=== PATIENT | male | born 1950 | race Caucasian/White ===

== ENCOUNTER 2018-03-23 12:33 | Day surgery (SDC) | payer OTHER ==
[~2018-03-23] VITALS: Ht 162.6 cm; Wt 67.0 kg
[~2018-03-23 12:33] MED LIST: ASPI-1182 PO; ATOR20TA86 PO; CARV12 PO; DOCU-272 PO; FERR-89 PO; HYDR-4061 PO; IBUP-2071 PO; LACT30L PO; LISI-661 PO; PANT40TA25 PO; PROP20TA18 PO; PYRI100T2 PO; SACU1TAB PO; SODIUM CHLORIDE 0.9% 1,000 ML IV ONE; TAMS0.4C32 PO
[2018-03-23] MEDS ORDERED: LIDOCAINE/PF 2% 5 ML VIAL IM ONE (12:34)
[2018-03-23] MEDS ORDERED: PROPOFOL 1% 20 ML VIAL IVP ONE (12:34)
[2018-03-23] MEDS ORDERED: MIDAZOLAM HCL 2 MG/2 ML VIAL IVP ONE (12:34)
[2018-03-23] MEDS ORDERED: SODIUM CHLORIDE 0.9% 1,000 ML IV ONE (12:55)
== END 2018-03-23 16:25 | disposition home or self-care (01) ==
LOC: SURGERY 12:33
PROVIDERS: ATTEND Internal Medicine Gastroenterology
DX: K29.50 Unspecified chronic gastritis without bleeding (principal); I85.00 Esophageal varices without bleeding; K76.6 Portal hypertension; K31.89 Other diseases of stomach and duodenum; K74.60 Unspecified cirrhosis of liver; D64.9 Anemia, unspecified; H91.90 Unspecified hearing loss, unspecified ear; D68.9 Coagulation defect, unspecified; I25.2 Old myocardial infarction; I45.2 Bifascicular block; M81.0 Age-related osteoporosis without current pathological fracture; I25.10 Atherosclerotic heart disease of native coronary artery without angina pectoris; I45.19 Other right bundle-branch block; I11.0 Hypertensive heart disease with heart failure; I50.9 Heart failure, unspecified; E78.00 Pure hypercholesterolemia, unspecified; F17.210 Nicotine dependence, cigarettes, uncomplicated; F10.10 Alcohol abuse, uncomplicated; Z86.74 Personal history of sudden cardiac arrest; Z86.19 Personal history of other infectious and parasitic diseases; Z87.442 Personal history of urinary calculi; Z95.0 Presence of cardiac pacemaker; Z79.82 Long term (current) use of aspirin; Z79.891 Long term (current) use of opiate analgesic; Z79.1 Long term (current) use of non-steroidal anti-inflammatories (NSAID); Z79.899 Other long term (current) drug therapy; Z82.49 Family history of ischemic heart disease and other diseases of the circulatory system; Z83.3 Family history of diabetes mellitus
CPT/HCPCS: 43239; 43244; 88305; 88312; 93005; C1769; J2250; J2704; J3490; J7030

== ENCOUNTER 2018-05-25 12:47 | Day surgery (SDC) | payer OTHER ==
[~2018-05-25] VITALS: Ht 160 cm; Wt 59.5 kg
[~2018-05-25 12:47] MED LIST changes: -IBUP-2071 PO; +LIDOCAINE/PF 2% 5 ML VIAL INJ ONE; +PROPOFOL 1% 20 ML VIAL IVP ONE
[2018-05-25] MEDS ORDERED: SODIUM CHLORIDE 0.9% 1,000 ML IV ONE (12:57)
[2018-05-25] MEDS ORDERED: SPIR50 PO (13:45)
[2018-05-25] MEDS ORDERED: METR500 PO (13:45)
== END 2018-05-25 16:00 | disposition home or self-care (01) ==
LOC: SURGERY 12:47
PROVIDERS: ATTEND Internal Medicine Gastroenterology
DX: I85.00 Esophageal varices without bleeding (principal); K29.50 Unspecified chronic gastritis without bleeding; K76.6 Portal hypertension; E78.00 Pure hypercholesterolemia, unspecified; I50.9 Heart failure, unspecified; I11.0 Hypertensive heart disease with heart failure; I25.2 Old myocardial infarction; K31.89 Other diseases of stomach and duodenum; K74.60 Unspecified cirrhosis of liver; Z86.19 Personal history of other infectious and parasitic diseases; Z87.442 Personal history of urinary calculi; Z95.0 Presence of cardiac pacemaker; Z86.010 Personal history of colon polyps; Z79.899 Other long term (current) drug therapy
CPT/HCPCS: 43239; 43244; 88307; 88312; 88313; J2704; J3490; J7030